=== PATIENT | female | born 1990 | race Caucasian/White ===

== ENCOUNTER 2017-02-09 16:59 | Inpatient (IN) ==
[2017-02-09] MEDS ORDERED: DINOPROSTONE VAG GEL 10 MG SYRINGE VAG ONE (17:10)
[2017-02-09] MEDS ORDERED: ONDANSETRON 4 MG/2 ML VIAL IV PRN (17:30)
[2017-02-09 17:51] LABS: Basophils % 0.3 % (0.0-0.8); Eosinophils # 0.3 10*3/uL (0.0-0.87); Hematocrit 36.7 VOL% (35.7-47.0); Hemoglobin 12.6 GM/DL (12.0-16.0); Immature Granulocytes % 0.8 %; Immature Granulocytes Absolute 0.12 #; Lymphocytes # 2.7 10*3/uL (1.4-4.0); Lymphocytes % 17.9 % (21.3-54.2); Mean Corpuscular HGB Conc 34.3 GM/DL (32-36); Mean Corpuscular Hemoglobin 31 PG (27-34); Mean Corpuscular Volume 88.9 FL (87-102); Mean Platelet Volume 10.7 FL (9.6-12.0); Monocytes % 6.7 % (1.7-12.7); Neutrophils # 11.1 10*3/uL (1.4-7.4); Neutrophils % 72.3 % (38.7-73.9); Platelet Count 318 T/CUMM (130-400); Red Blood Count 4.13 MC/CUMM (3.8-5.5); Red Cell Distribution Width 14.4 % (9.3-17.3); White Blood Count 15.3 T/CUMM (4-12)
[2017-02-09 18:18] LABS: Alanine Aminotransferase 14 U/L (13-56); Albumin 2.6 G/DL (3.4-5.0); Alkaline Phosphatase 181 U/L (45-117); Aspartate Amino Transferase 13 U/L (0-37); Bilirubin,Total < 0.39 MG/DL (0.2-1.0); Blood Urea Nitrogen 7 MG/DL (7-18); Calcium 10.2 MG/DL (8.5-10.1); Glucose 96 MG/DL (74-106); Potassium 3.9 MMOL/L (3.5-5.1); Sodium 136 MMOL/L (136-145); Total Protein 7.2 G/DL (6.4-8.3); Uric Acid 4.6 MG/DL (2.6-6.0)
[2017-02-09] MEDS: LACTATED RINGERS 1,000 ML IV SCH (19:36)
[2017-02-09] MEDS: BUTORPHANOL 2 MG/ML VIAL IV PRN (22:26)
[2017-02-09] MEDS ORDERED: fentaNYL 2 MCG/ROPIV 0.2% EPID 150 ML EPIDURAL SCH (23:45)
[2017-02-09] MEDS ORDERED: ONDANSETRON 4 MG/2 ML VIAL IV ONE (23:52)
[2017-02-09] MEDS ORDERED: FAMOTIDINE 20 MG/2 ML VIAL IV ONE (23:52)
[2017-02-09] MEDS ORDERED: LACTATED RINGERS 1,000 ML IV ONE (23:52)
[2017-02-09] MEDS ORDERED: diphenhydrAMINE 50 MG/1 ML VIAL IV PRN ×2 (23:52)
[2017-02-09] MEDS ORDERED: PROMETHAZINE 25 MG/1 ML VIAL IM ONE (23:52)
[2017-02-09] MEDS ORDERED: CITRIC ACID/SODIUM CITRATE 30 ML UDCUP PO ONE (23:52)
[2017-02-09] MEDS ORDERED: ePHEDrine 50 MG/ML AMP IV PRN (23:52)
[2017-02-09] MEDS ORDERED: hydrOXYzine HCL 25 MG/1 ML VIAL IM PRN (23:52)
[2017-02-10] MEDS ORDERED: OXYTOCIN/LR 20 UNIT/1,000 ML BAG IV SCH
[2017-02-10] MEDS: BUTORPHANOL 2 MG/ML VIAL IV PRN (01:48)
[2017-02-10 05:52] LABS: Apearance,Urine CLEAR (Clear); Bacteria,Urine Many /HPF (Few); Bilirubin,Urine Negative (Negative); Blood, Urine Negative (Negative); Glucose,Urine (UA) Negative (Negative); Ketones,Urine Negative (Negative); Mucus,Urine Occasional /LPF (Occasional); Nitrite,Urine Negative (Negative); Protein,Urine Negative; RBC,Urine 1 /HPF (0-4); Urine Color Yellow (Yellow); Urine Specific Gravity 1.006 (1.001-1.035); Urine Urobilinogen < 2.0 EU/DL (0.2-1.0); WBC,Urine 2 /HPF (0-6)
[2017-02-10] MEDS: LACTATED RINGERS 1,000 ML IV SCH (06:29)
[2017-02-10] MEDS ORDERED: hydrALAZINE 20 MG/1 ML VIAL IV ONE ×2 (09:52→12:16)
[2017-02-10] MEDS ORDERED: OXYTOCIN/LR 30 UNIT/1,000 ML BAG IV ONE ×2 (15:10→20:44)
[2017-02-10] MEDS ORDERED: OXYTOCIN 10 UNIT/ML VIAL IM ONE (15:30)
[2017-02-10] MEDS ORDERED: ceFAZolin 2,000 MG in PREMIX 1 EACH IV ONE (17:00)
[2017-02-10 18:33] LABS: Cord Venous Blood HCO3 22.5 MMOL/L; Cord Venous Blood PCO2 38.5 MMHG; Cord Venous Blood PO2 34.7
[2017-02-10] MEDS ORDERED: MORPHINE 10 MG/10 ML VIAL ONE (19:26)
[2017-02-10] MEDS ORDERED: PROPOFOL 200 MG/20 ML VIAL IV ONE (19:26)
[2017-02-10] MEDS ORDERED: MIDAZOLAM 2 MG/2 ML VIAL ONE (19:27)
[2017-02-10] MEDS ORDERED: fentaNYL 100 MCG/2 ML VIAL ONE (19:27)
[2017-02-10] MEDS ORDERED: ONDANSETRON 4 MG/2 ML VIAL ONE (19:27)
[2017-02-10] MEDS ORDERED: LIDOCAINE MPF 2% /EPI 20 ML VIAL ONE (19:27)
[2017-02-10] MEDS ORDERED: miSOPROStol 200 MCG TABLET ONE (19:39)
[2017-02-10] MEDS ORDERED: miSOPROStol 200 MCG TABLET VAG ONE (20:06)
[2017-02-10] MEDS ORDERED: levETIRAcetam 500 MG TABLET PO SCH (21:00)
[2017-02-10] MEDS ORDERED: ACETAMINOPHEN 325 MG TABLET PO PRN (21:47)
[2017-02-10] MEDS ORDERED: ONDANSETRON 4 MG/2 ML VIAL IV PRN (21:47)
[2017-02-10] MEDS ORDERED: RHO(D) IMMUNE GLOBULIN 300 MCG SYRINGE IM ONE (21:47)
[2017-02-10] MEDS ORDERED: LACTATED RINGERS 1,000 ML IV SCH (21:47)
[2017-02-10] MEDS ORDERED: OXYTOCIN/LR 20 UNIT/1,000 ML BAG IV ONE (21:47)
[2017-02-10] MEDS ORDERED: SIMETHICONE CHEW 80 MG TABLET PO PRN (21:47)
[2017-02-10] MEDS: HYDROmorphone 2 MG/1 ML VIAL IV PRN (21:58)
[2017-02-10] MEDS: levETIRAcetam 250 MG TABLET PO SCH (22:06)
[2017-02-10] MEDS ORDERED: diphenhydrAMINE 50 MG/1 ML VIAL IV PRN (23:37)
[2017-02-11] MEDS: ceFAZolin 1,000 MG in SYRINGE 1 EACH IV SCH ×2 (01:39→10:47)
[2017-02-11] MEDS: HYDROmorphone 2 MG/1 ML VIAL IV PRN (03:47)
[2017-02-11 04:26] LABS: Basophils % 0.2 % (0.0-0.8); Eosinophils # 0.1 10*3/uL (0.0-0.87); Eosinophils % 0.4 % (0.00-10.9); Hematocrit 24.8 VOL% (35.7-47.0); Hemoglobin 8.2 GM/DL (12.0-16.0); Immature Granulocytes % 0.8 %; Immature Granulocytes Absolute 0.14 #; Lymphocytes % 11.3 % (21.3-54.2); Mean Corpuscular HGB Conc 33.1 GM/DL (32-36); Mean Corpuscular Hemoglobin 30 PG (27-34); Mean Corpuscular Volume 91.9 FL (87-102); Mean Platelet Volume 10.1 FL (9.6-12.0); Monocytes # 1.1 10*3/uL (0.11-0.8); Monocytes % 6.1 % (1.7-12.7); Neutrophils # 14.4 10*3/uL (1.4-7.4); Neutrophils % 81.2 % (38.7-73.9); Platelet Count 241 T/CUMM (130-400); Red Cell Distribution Width 14.9 % (9.3-17.3); White Blood Count 17.8 T/CUMM (4-12)
[2017-02-11 04:53] LABS: Band Neutrophils 3 % (0-10); Lymphocytes 10 % (20-55); Platelet Estimate Normal; Segmented Neutrophils 79 % (50-85); Total Cells Counted 100
[2017-02-11 04:54] LABS: Anisocytosis Slight; Macrocytosis Slight
[2017-02-11] MEDS: IBUPROFEN 800 MG TABLET PO PRN ×2 (08:16→20:45)
[2017-02-11 10:18] LABS: Basophils % 0.2 % (0.0-0.8); Eosinophils # 0.1 10*3/uL (0.0-0.87); Eosinophils % 0.5 % (0.00-10.9); Hematocrit 26.7 VOL% (35.7-47.0); Hemoglobin 8.8 GM/DL (12.0-16.0); Immature Granulocytes % 0.7 %; Immature Granulocytes Absolute 0.14 #; Lymphocytes # 2.3 10*3/uL (1.4-4.0); Lymphocytes % 11.5 % (21.3-54.2); Mean Corpuscular Hemoglobin 30 PG (27-34); Mean Corpuscular Volume 91.8 FL (87-102); Mean Platelet Volume 10.1 FL (9.6-12.0); Monocytes # 1.4 10*3/uL (0.11-0.8); Monocytes % 7.1 % (1.7-12.7); Neutrophils # 16.2 10*3/uL (1.4-7.4); Platelet Count 291 T/CUMM (130-400); Red Blood Count 2.91 MC/CUMM (3.8-5.5); Red Cell Distribution Width 14.8 % (9.3-17.3); White Blood Count 20.2 T/CUMM (4-12)
[2017-02-11 10:36] LABS: Band Neutrophils 5 % (0-10); Eosinophils 2 % (0-10); Lymphocytes 15 % (20-55); Segmented Neutrophils 73 % (50-85); Total Cells Counted 100
[2017-02-11 10:37] LABS: Hypochromasia 1+; Microcytosis 1+; Platelet Estimate Normal
[2017-02-11] MEDS: DOCUSATE SODIUM 100 MG CAPSULE PO SCH ×2 (10:45→20:44)
[2017-02-11] MEDS: FERROUS SULFATE 325 MG TABLET PO SCH ×2 (10:45→20:44)
[2017-02-11] MEDS: levETIRAcetam 250 MG TABLET PO SCH ×2 (10:45→20:45)
[2017-02-11] MEDS: MULTIVITAMIN (PRENATAL) TABLET PO SCH (10:45)
[2017-02-11] MEDS ORDERED: miSOPROStol 200 MCG TABLET VAG ONE ×2 (19:36→19:38)
[2017-02-11] MEDS: MAGNESIUM HYDROXIDE SUSP 30 ML UDCUP PO PRN (20:44)
[2017-02-12] MEDS: IBUPROFEN 800 MG TABLET PO PRN ×2 (04:14→13:39)
[2017-02-12] MEDS: levETIRAcetam 250 MG TABLET PO SCH (08:51)
[2017-02-12] MEDS: MAGNESIUM HYDROXIDE SUSP 30 ML UDCUP PO PRN (08:51)
[2017-02-12] MEDS: MULTIVITAMIN (PRENATAL) TABLET PO SCH (08:51)
[2017-02-12] MEDS: FERROUS SULFATE 325 MG TABLET PO SCH (08:51)
[2017-02-12] MEDS: DOCUSATE SODIUM 100 MG CAPSULE PO SCH (08:51)
[2017-02-12 09:02] VITALS: BP 116/54
== END 2017-02-12 18:40 | disposition home or self-care (01) | DRG 540 ==
LOC: N.LAB 16:59 → N.LD 17:01 → N.OB 02-10 21:48
PROVIDERS: ADMIT Obstetrics & Gynecology; ATTEND Obstetrics & Gynecology
PROC: LDCSECT (ICD-10-PCS; 2017-02-10 17:00)